=== PATIENT | male | born 1975 | race Caucasian/White ===

== ENCOUNTER 2019-06-15 11:14 | Outpatient (CLI) | payer BC, SELFPAY ==
--- NOTE | 2019-06-15 12:06 | EST_ITS ---
Patient Info Name: Adam Asher Age: 43 years : 1975 Gender: Male Ht: 70 in Wt: 210 lbs BSA: 2.19 m2 Exam Date: 06/15/2019 12:31 PM Exam Location: [facility] Stress Patient Status: Outpatient Admit Date: 06/15/2019 Staff Ordering Physician: Lina Boswell PAC Attending Provider: Lina Boswell Exercise Technologist: Stacie Lieberman, CT Exercise Physician: Isma Huang DO Exam Type: CA stress test treadmill Summary 1. 1. Negative Timmy exercise stress test for ischemic ST changes by ECG criteria. 2. 2. Good functional capacity, achieving 11 METs of workload. 3. 3. Appropriate HR response to exercise. 4. 4. Appropriate HR recovery at 1 minute post exercise. 5. 5. Hypertensive response to exercise. 6. 6. No imaging with stress testing. 7. 7. Patient informed of the above results. Protocol: Timmy Stress ECG Details Stage: REST Duration (min): 19 min : 22 sec Speed (mph): 0.0 Grade (%): 0 HR (bpm): 70 SBP (mmHg): 139 DBP (mmHg): 79 METS: --- Stage: STAGE 1 Duration (min): 1 min : 0 sec Speed (mph): 1.7 Grade (%): 10 HR (bpm): 88 SBP (mmHg): 139 DBP (mmHg): 79 METS: --- Stage: STAGE 1 Duration (min): 2 min : 0 sec Speed (mph): 1.7 Grade (%): 10 HR (bpm): 100 SBP (mmHg): 145 DBP (mmHg): 66 METS: --- Stage: STAGE 1 Duration (min): 3 min : 0 sec Speed (mph): 1.7 Grade (%): 10 HR (bpm): 103 SBP (mmHg): 166 DBP (mmHg): 69 METS: --- Stage: STAGE 2 Duration (min): 1 min : 0 sec Speed (mph): 2.5 Grade (%): 12 HR (bpm): 108 SBP (mmHg): 166 DBP (mmHg): 69 METS: --- Stage: STAGE 2 Duration (min): 2 min : 0 sec Speed (mph): 2.5 Grade (%): 12 HR (bpm): 112 SBP (mmHg): 199 DBP (mmHg): 92 METS: --- Stage: STAGE 2 Duration (min): 3 min : 0 sec Speed (mph): 2.5 Grade (%): 12 HR (bpm): 124 SBP (mmHg): 199 DBP (mmHg): 92 METS: --- Stage: STAGE 3 Duration (min): 1 min : 0 sec Speed (mph): 3.4 Grade (%): 14 HR (bpm): 138 SBP (mmHg): 199 DBP (mmHg): 92 METS: --- Stage: STAGE 3 Duration (min): 2 min : 0 sec Speed (mph): 3.4 Grade (%): 14 HR (bpm): 138 SBP (mmHg): 225 DBP (mmHg): 80 METS: --- Stage: STAGE 3 Duration (min): 3 min : 0 sec Speed (mph): 3.4 Grade (%): 14 HR (bpm): 144 SBP (mmHg): 236 DBP (mmHg): 57 METS: --- Stage: STAGE 4 Duration (min): 0 min : 31 sec Speed (mph): 4.2 Grade (%): 16 HR (bpm): 149 SBP (mmHg): 236 DBP (mmHg): 57 METS: --- Stage: RECOVERY Duration (min): 0 min : 28 sec Speed (mph): 0.0 Grade (%): 0 HR (bpm): 139 SBP (mmHg): 236 DBP (mmHg): 57 METS: --- Stage: RECOVERY Duration (min): 1 min : 28 sec Speed (mph): 0.0 Grade (%): 0 HR (bpm): 115 SBP (mmHg): 250 DBP
== END 2019-06-15 11:15 | disposition home or self-care (01) ==
LOC: ANHCARD 11:16
PROVIDERS: PCP Family Medicine; Visit Provider Physician Assistant Medical
DX: I77.1 Stricture of artery (principal)
CPT/HCPCS: 93017

== ENCOUNTER 2021-04-08 00:55 | Day surgery (SDC) | payer BC, SELFPAY ==
[2021-03-29 11:48] VITALS: BMI 30.1
[2021-04-08 13:19] VITALS: BP 153/72; PULSE 66; RESP 18; TEMP 36.6; O2SAT 100
[2021-04-08] MEDS: LACTATED RINGERS 1,000 ML 150 ML IV CONT (13:26)
--- NOTE | 2021-04-08 13:28 | WPDANESEPPF ---
Anes - Initial Pre Proc Eval Procedure: Operation Date: 04/08/21 14:00 Proposed Procedures p Screening Colonoscopy - Sonny Madera MD Date/Time: 04/08/21 13:28 Surgeon: Sonny Madera MD Pre Op Diagnosis: neoplasm screening Patient Data Age: 45 Gender: M Height: 1.78 m Weight: 97.3 kg Last Vital Signs Temp 36.6 C 04/08/21 13:19 Pulse 66 04/08/21 13:19 Resp 18 04/08/21 13:19 BP 153/72 H 04/08/21 13:19 Pulse Ox 100 04/08/21 13:19 Allergies Allergy/AdvReac Type Severity Reaction Status Date / Time No Known Allergies Allergy Verified 04/08/21 13:18 Home Medications Medication Instructions Recorded Confirmed Type tadalafil 5 mg tablet 5 mg PO DAILY 02/26/21 03/29/21 History Patient hx anesthesia problems: none Family hx anesthesia problems: none Results Review: All pre-operative results and documents have been reviewed as part of the pre-operative evaluation. [facility] Past Medical History Medical History BMI 30.0-30.9,adult BMI 32.0-32.9,adult Encounter for screening colonoscopy Surgical History Surgical History History of appendectomy Family History Family History Father Malignant neoplasm of prostate Mother Heart disease Sibling No problems noted. 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 Informed Consent: The patient's anesthetic plan and its attendant risks and benefits were discussed with the patient/family/POA. Questions were solicited and answers provided to the satisfaction of the patient/family/POA.
--- NOTE | 2021-04-08 13:53 | PM.HPGS ---
History of Present Illness History of Present Illness Consent: Risks, benefits, and alternatives have been discussed and questions answered. Patient agrees to proceed with procedure. Chief complaint: neoplasm screening Narrative: Adam Asher is a 45 year old male here for first screening colonoscopy Review of Systems Constitutional: Constitutional: Denies headache(s) and Denies weakness Eyes: Eyes: Denies blurry vision ENT: Reports Normal hearing present, Denies headache(s) and Denies neck pain Cardiovascular: Cardiovascular: Denies chest pain and Denies dyspnea Respiratory: Respiratory: Denies dyspnea Gastrointestinal: Gastrointestinal: Reports no additional gastrointestinal complaints Genitourinary: Genitourinary: Denies dysuria Musculoskeletal: Musculoskeletal: Denies neck pain Integumentary/Breasts: Skin/Breast: Denies dry skin Neurologic: Reports Normal hearing present, Denies headache(s) and Denies weakness Psychiatric: Psychiatric: Denies anxiety Endocrine: Endocrine: Denies change in body appearance Hematologic/Lymphatic: Hematologic/Lymphatic: Denies easy bleeding Allergic/Immunologic: Allergic/Immunologic: Denies urticaria PMF Past Medical History Medical History BMI 30.0-30.9,adult BMI 32.0-32.9,adult Encounter for screening colonoscopy Surgical History Surgical History History of appendectomy Family History Family History Father Malignant neoplasm of prostate Mother Heart disease Sibling No problems noted. 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 Gender identity (if verbalized by the patient): Male Spiritual care concerns: No Meds Home Medications and Allergies Home Medications Medication Instructions Recorded Confirmed Type tadalafil 5 mg tablet 5 mg PO DAILY 02/26/21 03/29/21 History Allergies Allergy/AdvReac Type Severity Reaction Status Date / Time No Known Allergies Allergy Verified 04/08/21 13:18 Vital Signs Vital Signs - 24 hr 04/08/21 13:19 Temperature 97.9 F Pulse Rate 66 Respiratory Rate 18 Blood Pressure 153/72 H Pulse Oximetry 100 Exam Const: General: comfortable and no acute distress HENMT: General nose exam: Normal nares present Eyes: General: appearance normal, both eyes and all related structures Neck: Neck: no JVD Resp: Auscultation: clear to auscultation bilaterally Cardio: Rate: regular rate Rhythm: regular rhythm GI: Inspection: non-distended GI Palp: Yes Soft to palpation Skin: General skin exam: normal color Neuro: General: gait normal Speech: normal speech Extrem: General: normal to inspection Psych: Mental Status: mental status grossly normal Assessment and Plan Assessment and plan (1) Encounter for screening colonoscopy: Code(s): Z12.11 - Encounter for screening for malignant neoplasm of colon Status: Acute Assessment and Plan: colonoscopy
[2021-04-08 14:16] VITALS: BP 130/86; PULSE 73; RESP 25; O2SAT 96
[2021-04-08 14:26] VITALS: BP 142/80; PULSE 64; RESP 20; O2SAT 97
[2021-04-08 14:36] VITALS: BP 136/87; PULSE 60; RESP 20; O2SAT 98
== END 2021-04-08 14:44 | disposition home or self-care (01) ==
PROVIDERS: PCP Family Medicine; Visit Provider Internal Medicine Gastroenterology
PROC: 0DJD8ZZ Inspection of Lower Intestinal Tract, Via Natural or Artificial Opening Endoscopic (ICD-10-PCS; CPT 45378; principal; 2021-04-08 14:00)
DX: Z12.11 Encounter for screening for malignant neoplasm of colon (principal); K64.8 Other hemorrhoids
CPT/HCPCS: 45378; J2704; J7120

== ENCOUNTER → 2022-04-24 10:32 | Outpatient (CLI) | payer BC, SELFPAY ==
--- NOTE | ~2022-04-24 | XR_ITS ---
Right foot Technique: AP and lateral views were obtained. Clinical History: Pain Findings: No acute fracture or dislocation is seen. Osseous alignment is anatomic. Joint spaces are p reserved without erosive or degenerative change. Probable mild soft tissue swelling of the plantar tam bcutaneous soft tissues at the medial. Impression: Probable mild soft tissue swelling the plantar subcutaneous soft tissues posteriorly. No osseous or articular abnormality seen. Reviewed, dictated and finalized at location . 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 No osseous or articular abnormality seen.
== END ==
PROVIDERS: PCP Family Medicine; Visit Provider Physician Assistant Medical
DX: M79.671 Pain in right foot (principal)
CPT/HCPCS: 73620